=== PATIENT | male | born 1985 | race Caucasian/White ===

== ENCOUNTER 2019-06-27 13:54 | Outpatient (CLI) | payer MEDICAID ==
[~2019-06-27] VITALS: Ht 172.7 cm; Wt 97.5 kg
[2019-06-27 15:21] VITALS: BP 128/77
--- NOTE | 2019-06-27 23:00 | Consultation ---
DATE OF CONSULTATION: 06/27/2019 CHIEF COMPLAINT: Dysphagia, food impaction. HISTORY OF PRESENT ILLNESS: This is a very pleasant 33-year-old male with past medical history of dysphagia and multiple food impaction. Apparently, he had two emergency room admission, one time had EGD with biopsy which was consistent with eosinophilic esophagitis, this is all per patient, but he was not convinced about the diagnosis and second opinion. PAST MEDICAL HISTORY: 1. Childhood asthma. 2. Depression. 3. IBS. 4. Questionable eosinophilic esophagitis. 5. Dysphagia with food impaction. PAST SURGICAL HISTORY: [employer] teeth removal. MEDICATIONS: Please see medication reconciliation list. FAMILY HISTORY: Noncontributory. SOCIAL HISTORY: The patient occasionally drinks. Denies any tobacco usage. ALLERGIES: Millet. REVIEW OF SYSTEMS: Positive for GERD, food impaction, dysphagia. PHYSICAL EXAMINATION: VITAL SIGNS: Temperature 97.2, blood pressure 125/77, pulse 78, respirations 20. HEENT: Normocephalic and atraumatic. Sclerae anicteric. NECK: Supple. No evidence of obvious lymphadenopathy. CARDIOVASCULAR: Regular rate and rhythm. Plus S1, S2. LUNGS: Clear to auscultation bilaterally. ABDOMEN: Positive bowel sounds. Soft and nontender. No rebound. No guarding. No peritoneal sign. EXTREMITIES: No cyanosis. No clubbing. No edema. ASSESSMENT: The patient is a 33-year-old male with solid dysphagia, questionable eosinophilic esophagitis. PLAN: The patient needs endoscopy for diagnosis. Risks and benefits of procedure was explained to him, he agreed. From symptoms that he has been having childhood asthma and young male with food impaction, this is suspicious for eosinophilic esophagitis but the patient is under the impression that he might have Zenker's diverticulum or Schatzki's ring. So, we will plan to do an endoscopy for evaluation. Also, the patient was seen by crm marketing specialist and was only allergic to millet. Quincy Hollis M.D. DR: Zachary JOB#: [id number] CC:
== END 2019-06-27 15:54 | disposition home or self-care (01) ==
LOC: PAN 13:54
DX: R13.10 Dysphagia, unspecified (principal); F32.9 Major depressive disorder, single episode, unspecified; K58.9 Irritable bowel syndrome, unspecified; K21.9 Gastro-esophageal reflux disease without esophagitis
CPT/HCPCS: G0463

== ENCOUNTER 2019-08-04 12:07 | Outpatient (CLI) | payer MEDICAID ==
--- NOTE | 2019-08-08 14:29 | General Progress Note ---
Assessment/Plan Assessment/Plan: eosinophilic esophagitis trial of steroid inhaler referral to medical management specialist>> defer to pmd may need repeat EGD in 8 weeks Subjective ROS Limited/Unobtainable: Yes Allergies: Uncoded Allergies: MILLET (Allergy, Unknown, 06/27/19) Objective General Appearance: alert EENT: PERRL/EOMI Neck: supple Cardiovascular: normal rate Respiratory/Chest: decreased breath sounds Abdomen: normal bowel sounds, non tender, soft Extremities: non-tender Quincy Hollis MD Aug 08, 2019 14:29
== END 2019-08-04 14:07 | disposition home or self-care (01) ==
LOC: PAN 12:07
DX: K20.0 Eosinophilic esophagitis (principal)
CPT/HCPCS: 99212